=== PATIENT | female | born 1965 | race African-American/Black ===

== ENCOUNTER 2016-05-22 05:34 | Day surgery (SDC) | payer BC ==
--- NOTE | ~2016-05-22 | EGD ---
EGD REPORT [facility] [address] [address] NAME: SYUAPA CANO : 65 STATUS : REG [facility] PAT#: [id number] AGE: 51 ADM/REG DATE : 05/22/16 MR#: [id number] REPORT SERV DATE: 05/22/16 DICTATED BY: JUNE PICKETT DATE: 05/22/16 REPORT STATUS : Draft TRANSCRIBED BY: [facility] DATE: 05/22/16 Endoscopy Center Patient Name: Suyapa Cano Date of : 1965 Attending MD: JUNE PICKETT MD Procedure Date No Time: 05/22/2016 Procedure: Colonoscopy Indications: Screening for colorectal malignant neoplasm Referring MD: MARIMAR CASTAÑEDA MD Medicines: as per anesthesia Complications: No immediate complications. Procedure: Pre-Anesthesia Assessment: - ASA Grade Assessment: II - A patient with mild systemic disease. After I obtained informed consent, the scope was passed under direct vision. Throughout the procedure, the patient's blood pressure, pulse, and oxygen saturations were monitored continuously. The PCF [id number] was introduced through the anus and advanced to the cecum, identified by appendiceal orifice and ileocecal valve. The colonoscopy was performed without difficulty. The patient tolerated the procedure. The quality of the bowel preparation was adequate to identify polyps. Findings: The perianal and digital rectal examinations were normal. Internal hemorrhoids were found during endoscopy and were mild. Impression: - Internal hemorrhoids. Recommendation: - Repeat colonoscopy in 10 years for surveillance. Procedure Code(s): --- Professional --- 43159, Colonoscopy, flexible, proximal to splenic flexure; diagnostic, with or without collection of specimen(s) by brushing or washing, with or without colon decompression (separate procedure) Diagnosis Code(s): --- Professional --- K64.8, Other hemorrhoids Z12.11, Encounter for screening for malignant neoplasm of colon CPT copyright 2013 [employer]. All rights reserved. EGD REPORT [facility] [address] [address] NAME: SUYAPA CANO : [birth year] STATUS : REG [facility] PAT#: [id number] AGE: 51 ADM/REG DATE : 05/22/16 MR#: [id number] REPORT SERV DATE: 05/22/16 DICTATED BY: JUNE PICKETT. DATE: 05/22/16 REPORT STATUS : Draft TRANSCRIBED BY: [employer] DATE: 05/22/16 The codes documented in this report are preliminary and upon greens planter review may be revised to meet current compliance requirements. JUNE PICKETT MD 05/22/2016 7:50 AM This report has been signed electronically. Number of Addenda: 0 Note Initiated On: 05/22/2016 7:24 AM Scope Withdrawal Time 0 hours 6 minutes 4 seconds [address] [address]
--- NOTE | ~2016-05-22 | EGD ---
EGD REPORT [facility] [address] [address] NAME: SUYAPA CANO : [birth year] STATUS : REG [facility]#: [id number] AGE: 51 ADM/REG DATE : 05/22/16 MR#: [id number] REPORT SERV DATE: 05/22/16 DICTATED BY: JUNE PICKETT DATE: 05/22/16 REPORT STATUS : Draft [facility]ANSCRIBED BY: [facility] DATE: 05/22/16 Endoscopy Center Patient Name: Suyapa Cano Date of : 1965 Attending MD: JUNE PICKETT MD Procedure Date No Time: 05/22/2016 Procedure: Upper GI endoscopy Indications: Dysphagia Referring MD: MARIMAR CASTAÑEDA MD Medicines: as per anesthesia Complications: No immediate complications. Procedure: Pre-Anesthesia Assessment: - ASA Grade Assessment: II - A patient with mild systemic disease. After obtaining informed consent, the endoscope was passed under direct vision. Throughout the procedure, the patient's blood pressure, pulse, and oxygen saturations were monitored continuously. The GIF H190 [id number] was introduced through the mouth, and advanced to the third part of duodenum. The upper GI endoscopy was accomplished without difficulty. The patient tolerated the procedure. Findings: The examined esophagus was normal. The scope was withdrawn. Dilation was performed with a [place] dilator with no resistance at 48 Fr. The entire examined stomach was normal. The cardia and gastric fundus were normal on retroflexion. The examined duodenum was normal. Impression: - Normal esophagus. Dilated. - Normal stomach. - Normal examined duodenum. Recommendation: - Continue present medications. Procedure Code(s): --- Professional --- 30756, Esophagogastroduodenoscopy, flexible, transoral; diagnostic, including collection of specimen(s) by brushing or washing, when performed (separate procedure) 37251, Dilation of esophagus, by unguided sound or bougie, single or multiple passes Diagnosis Code(s): --- Professional --- R13.10, Dysphagia, unspecified EGD REPORT [facility] [address] [place]. [address] NAME: SUYAPA CANO : 65 [place]US : [place] [facility] PAT#: [id number] AGE: 51 ADM/REG DATE : 05/22/16 MR#: [id number] REPORT SERV DATE: 05/22/16 DICTATED BY: JUNE PICKETT. DATE: 05/22/16 REPORT STATUS : Draft TRANSCRIBED BY: [employer] DATE: 05/22/16 CPT copyright 2013 [employer]. All rights reserved. The codes documented in this report are preliminary and upon director of loss prevention review may be revised to meet current compliance requirements. JUNE PICKETT MD 05/22/2016 7:28 AM This report has been signed electronically. Number of Addenda: 0 Note Initiated On: 05/22/2016 7:09 AM Scope Withdrawal Time 0 hours 0 minutes 0 seconds [address] [place] [address]
[~2016-05-22 05:34] MED LIST: LIPITOR40 PO; NEXIUM40 PO; PRINZIDE1 TA1 PO
== END 2016-05-22 23:59 | disposition home or self-care (01) ==
LOC: DMU 05:34
PROVIDERS: Internal Medicine Gastroenterology
PROC: 0DJD8ZZ Inspection of Lower Intestinal Tract, Via Natural or Artificial Opening Endoscopic (ICD-10-PCS; principal; 2016-05-22 07:00)
PROC: 0DJ08ZZ Inspection of Upper Intestinal Tract, Via Natural or Artificial Opening Endoscopic (ICD-10-PCS; 2016-05-22 07:00)
PROC: 0D757ZZ Dilation of Esophagus, Via Natural or Artificial Opening (ICD-10-PCS; 2016-05-22 07:00)
DX: Z12.11 Encounter for screening for malignant neoplasm of colon (principal); K64.8 Other hemorrhoids; K21.9 Gastro-esophageal reflux disease without esophagitis; E78.00 Pure hypercholesterolemia, unspecified; I10 Essential (primary) hypertension; Z88.5 Allergy status to narcotic agent; Z79.899 Other long term (current) drug therapy; Z90.710 Acquired absence of both cervix and uterus; Z98.890 Other specified postprocedural states